=== PATIENT | male | born 1970 | race Caucasian/White ===

== ENCOUNTER 2023-02-20 15:22 | Emergency (ER) | payer MEDICAID ==
[~2023-02-20] VITALS: Ht 154.9 cm; Wt 55.9 kg
[2023-02-20 15:27] VITALS: BP_SYST 116; PULSE 67; RESP 18; TEMP 98.4; O2SAT 98
[2023-02-20] MEDS ORDERED: CEPH-585 PO (16:37)
[2023-02-20] MEDS ORDERED: TETanus/Pertussis (Acell)/Diphther VAC/PF (Tdap-Adult) 0.5ml syringe IMVAC ONE (16:40)
== END 2023-02-20 17:32 | disposition home or self-care (01) ==
LOC: ER 15:22
DX: S61.512A Laceration without foreign body of left wrist, initial encounter (principal); Z23 Encounter for immunization; W27.0XXA Contact with workbench tool, initial encounter; Y93.89 Activity, other specified; Y92.89 Other specified places as the place of occurrence of the external cause; Y99.8 Other external cause status
CPT/HCPCS: 90471; 90715; 99283; J7030; A6258; A6449

== ENCOUNTER 2023-07-17 21:32 | Emergency (ER) | payer SELFPAY ==
[~2023-07-17] VITALS: Ht 152.4 cm; Wt 55.4 kg
[~2023-07-17 21:32] MED LIST: CEPH-585 PO
[2023-07-17 21:52] VITALS: BP 102/69; PULSE 78; RESP 16; TEMP 98.5; O2SAT 99
== END 2023-07-17 23:00 | disposition home or self-care (01) ==
LOC: ER 21:33
DX: H92.01 Otalgia, right ear (principal); Z79.2 Long term (current) use of antibiotics
CPT/HCPCS: 99281

== ENCOUNTER 2023-08-31 19:45 | Emergency (ER) | payer SELFPAY ==
[~2023-08-31] VITALS: Ht 152.4 cm; Wt 56.8 kg
[2023-08-31] MEDS ORDERED: TRIA15CR61 TOP (20:46)
[2023-08-31] MEDS: diphenhydrAMINE 25mg capsule PO ONE (20:51)
[2023-08-31] MEDS: famotidine 20mg tablet PO ONE (20:51)
[2023-08-31 21:00] VITALS: BP 130/67; PULSE 60; RESP 15; TEMP 98.3; O2SAT 98
== END 2023-08-31 21:01 | disposition home or self-care (01) ==
LOC: ER 19:46
DX: L23.9 Allergic contact dermatitis, unspecified cause (principal); Z79.2 Long term (current) use of antibiotics
CPT/HCPCS: 99283; Q0163

== ENCOUNTER 2023-09-29 11:08 | Emergency (ER) | payer SELFPAY ==
[~2023-09-29] VITALS: Ht 152.4 cm; Wt 53.8 kg
[~2023-09-29 11:08] MED LIST changes: +TRIA15CR61 TOP
[2023-09-29 11:23] VITALS: BP 136/61; PULSE 70; RESP 16; TEMP 98.3; O2SAT 98
== END 2023-09-29 13:07 | disposition left against medical advice (07) ==
LOC: ER 11:09
DX: R21 Rash and other nonspecific skin eruption (principal); Z53.21 Procedure and treatment not carried out due to patient leaving prior to being seen by health care provider